=== PATIENT | female | born 1980 | race Caucasian/White ===

== ENCOUNTER 2017-01-15 10:59 | Emergency (ER) | payer OTHER ==
[~2017-01-15] VITALS: Ht 154.9 cm; Wt 44.5 kg
[2017-01-15 11:07] VITALS: BP 127/85
--- NOTE | 2017-01-15 11:57 | NUR ---
Patient ambulated to bed 07.
--- NOTE | 2017-01-15 11:59 | NUR ---
36 YEAR OLD FEMALE PRESENTS TO ER WITH C/O ABD PAIN AND VAG BLEEDING SINCE LAST WEEK, PER PT PASSED BIG POC ON THURSDAY, ABD SOFT SLIGHT TENDERNESS. PMD SENT HER TO ER FOR FURTHER EVAL.
--- NOTE | 2017-01-15 12:20 | NUR ---
Dr. Ramirez evaluating patient at bedside.
--- NOTE | 2017-01-15 12:38 | NUR ---
20G IV INSERTED VIA RT AC, BLOOD DRAWN GIVEN TO FRUIT PRESERVER, WAITING FOR PELVIC EXAM.
[2017-01-15 12:46] LABS: HEMATOCRIT 43.4 % (36-48); HEMOGLOBIN 14.5 g/dL (12.0-16.0)
--- NOTE | 2017-01-15 13:18 | NUR ---
Dr. Ramirez at bedside for pelvic exam.
--- NOTE | 2017-01-15 13:23 | NUR ---
PELVIC EXAM DONE BY MD WITH ASSIST. SPECIMEN OBTAINED AND SEND TO LAB.
--- NOTE | 2017-01-15 13:24 | NUR ---
REPORT GIVEN TO KATINA HANDLEY NURSE.
[2017-01-15 14:47] VITALS: BP 127/85
--- NOTE | 2017-01-15 14:47 | NUR ---
Patient discharged with v/s stable. Written and verbal after care instructions given and explained. Patient verbalized understanding. Ambulatory with steady gait. All questions addressed prior to discharge. Advised to follow up with PMD.
[2017-01-17 06:14] LABS: CHLAMYDIA TRACHOMATIS AMP DNA Negative (Negative)
== END 2017-01-15 14:47 | disposition home or self-care (01) ==
LOC: MED 10:59
DX: N93.8 Other specified abnormal uterine and vaginal bleeding (principal); R03.0 Elevated blood-pressure reading, without diagnosis of hypertension
CPT/HCPCS: 36415; 85018; 87070; 87205; 87210; 87491; 99284